=== PATIENT | male | born 1945 | race African-American/Black ===

== ENCOUNTER 2020-09-01 09:00 | Outpatient (RCR) | payer MEDICARE, MEDICAID, OTHER, SELFPAY ==
[2020-05-04 08:52] VITALS: BP 163/86; PULSE 60; RESP 18; TEMP 36.5; O2SAT 98; BMI 25.1
[2020-05-04] MEDS: Cyanocobalamin (Vitamin B-12) 1,000 MCG/ML VIAL 1000 MCG IM (09:05)
[2020-06-08 08:54] VITALS: BP 128/82; PULSE 71; RESP 18; TEMP 37.1; O2SAT 100; BMI 25.2
[2020-06-08] MEDS: Cyanocobalamin (Vitamin B-12) 1,000 MCG/ML VIAL 1000 MCG IM (09:14)
--- NOTE | 2020-06-08 09:28 | MHC.HEMONC ---
VIT B12 right deltoid, F/U in 1 month.
[2020-07-06 09:22] LABS: MANUAL DIFF FLAG NO
[2020-07-06 09:24] VITALS: BP 133/68; PULSE 70; RESP 16; TEMP 36.3; O2SAT 100; BMI 24.3
[2020-07-06 09:25] LABS: Basophils Absolute Auto 0.1 X10*3/uL (0.0-0.2); Eosinophils Absolute Auto 0.2 X10*3/uL (0.0-0.4); Eosinophils Percent Auto 3.3 % (0-4); Hematocrit 36.6 % (42-52); Hemoglobin 11.9 g/dl (14.0-18.0); Lymphocytes Percent Auto 38.7 % (20-40); Mean Corpuscular HGB Conc 32.5 g/dl (31.0-36.0); Mean Corpuscular Hemoglobin 29.4 pg (27.0-33.0); Mean Corpuscular Volume 90.4 fL (80-98); Monocytes Absolute Auto 0.4 X10*3/uL (0.1-1.2); Monocytes Percent Auto 8.1 % (2-11); Neutrophils Absolute Auto 2.5 X10*3/uL (2.0-8.3); Neutrophils Percent Auto 48.9 % (45-73); Platelet Count 267 X10*3/uL (160-400); Red Blood Count 4.05 X10*6/uL (4.60-5.80); Red Cell Distribution Width 14.7 % (11.0-16.0); White Blood Count 5.2 X10*3/uL (4.8-10.8)
[2020-07-06] MEDS: Cyanocobalamin (Vitamin B-12) 1,000 MCG/ML VIAL 1000 MCG IM (09:29)
--- NOTE | 2020-07-06 09:38 | P.PNHO_ITS ---
Medical Summary - Medical Summary Date of Service: 07/06/20 Medical Summary: DIAGNOSIS: Prostate Carcinoma diagnosed back in the year 1999. PSA was 7 or 8 at that time. [place] score of 3 + 2 = 5. He was treated by Dr. Rajinder Kenny. THERAPY: Underwent radiation therapy at [facility] under the care of Dr. Juanita Dale. He was on LHRH analogue twice a year. Subsequently, Lupron was stopped. After a few years, PSA started going up and he was restarted on Lupron. Last dose was February 26, 2015. September 2015, his PSA was up to 14.4, and he was started on Casodex and on Lupron back on December 25. He took a break from Lupron again for a few months. His PSA started rising and so he got a dose, about 6 months ago. Started on Enzalutamide in July,. PSA is down to 0.97. As of November 17. Interval History Interval history: A 75-year-old gentleman, here for a follow-up visit. He tells me that he has been feeling quite well. He denies any major complaints. He says, could be worst. No fever nor flank pain. He has good energy level. He denies noticing any chest pain or trouble breathing. No recent fever chills no night sweats. He denies headache nor dizziness. Denies any abdominal pain nausea vomiting heartburn indigestion. Bowels are moving without any gross blood in it. He has a good appetite. His weight is down. He is in good spirits, rest of the review of systems is unremarkable. Review of Systems - Constitutional Reports system reviewed and no additional complaints, except as documented - Eyes Reports system reviewed and no additional complaints, except as documented - ENT Reports system reviewed and no additional complaints, except as documented - Cardiovascular Reports system reviewed and no additional complaints, except as documented, Denies chest pain at rest - Respiratory Reports no additional respiratory complaints, Reports chest congestion, Denies dyspnea on exertion - Gastrointestinal Reports system reviewed and no additional complaints, except as documented, Denies abdominal pain, Denies change in bowel habits - Genitourinary Genitourinary: Reports no additional male genitourinary complaints - Musculoskeletal Reports system reviewed and no additional complaints, except as documented - Integumentary/Breasts Skin/Breast: Reports no additional skin complaints - Neurologic Reports system reviewed and no additional complaints, except as documented - Psychiatric Reports system reviewed and no additional complaints, except as documented, Denies anxiety - Endocrine Reports no additional endocrine complaints, Denies excessive sweating - Hematologic/Lymphatic Reports system reviewed and no additional complaints, except as documented, Denies easy bruising - Allergic/Immunologic Reports system reviewed and no additional complaints, except as documented, Denies GI upset with certain foods PMFSH Medical History: Medical History (Last Updated 07/06/20 @ 09:25 by Blanka Arzate RN) B12 deficiency FH: radiation therapy Hyperlipemia Hypertension Prostate cancer Functional capacity: independent ambulation Patient : No Home Medications and Allergies Current Medications: Current Medications Generic Name Dose Route Start Last Admin Trade Name Freq PRN Reason Stop Dose Admin Cyanocobalamin 1,000 mcg 06/08/20 09:00 06/08/20 09:14 Cyanocobalamin (Vitamin B-12) 1,000 Mcg/Ml Vial IM 1,000 mcg Q30D BREE Administration Home Medications Medication Instructions Recorded Confirmed Type amlodipine 5 mg PO DAILY 05/04/20 05/04/20 History atorvastatin 80 mg PO BEDTIME 05/04/20 05/04/20 History enzalutamide [Xtandi] 40 mg PO DAILY 05/04/20 05/04/20 History Allergies Allergy/AdvReac Type Severity Reaction Status Date / Time No Known Allergies Allergy Verified 07/06/20 09:25 [No Known Allergies*] Exam Vital signs: Vital Signs Temp 97.4 F 07/06/20 09:24 Pulse 70 07/06/20 09:24 Resp 16 07/06/20 09:24 BP 133/68 07/06/20 09:24 Pulse Ox 100 07/06/20 09:24 Intake & Output 07/05/20 07/06/20 07/06/20 18:59 06:59 18:59 Other: Weight 81.3 kg Weight 81.3 kg Body Mass Index 24.3 - Constitutional Present: no acute distress - Routine HEENT Exam Head: Present: normal inspection Eye: Present: normal appearance ENT: Present: mucous membranes moist - Routine Neck Exam Present: full ROM - Routine Respiratory Exam Present: CTAB - Routine Cardiovascular Exam Cardiovascular: Present: RRR, S1, S2 - Routine Abdominal Exam Present: soft, nontender - Routine Extremities Exam Present: nontender - Routine Back/Spine/Pelvis Exam Back/Spine: Present: full ROM - Routine Skin Exam Present: intact - Routine Neurological Exam Present: alert, oriented X3 - Routine Psychiatric Exam Present: normal affect Data - Labs CBC & Chem 7: 07/06/20 09:10 07/06/20 09:10 Labs: 05/04/20 00:01 Cyanocobalamin (Vitamin B-12) [Vitamin B-12] 1,000 mcg IM ONCE 07/06/20 07:57 Cyanocobalamin (Vitamin B-12) [Vitamin B-12] 1,000 mcg IM ONCE ONE 07/06/20 09:10 Complete Blood Count Auto Diff Routine Laboratory Last Values WBC 5.2 X10*3/uL (4.8-10.8) 07/06/20 09:10 RBC 4.05 X10*6/uL (4.60-5.80) L 07/06/20 09:10 Hgb 11.9 g/dl (14.0-18.0) L 07/06/20 09:10 Hct 36.6 % (42-52) L 07/06/20 09:10 MCV 90.4 fL (80-98) 07/06/20 09:10 MCH 29.4 pg (27.0-33.0) 07/06/20 09:10 MCHC 32.5 g/dl (31.0-36.0) 07/06/20 09:10 RDW 14.7 % (11.0-16.0) 07/06/20 09:10 Plt Count 267 X10*3/uL (160-400) 07/06/20 09:10 MPV 9.0 fL (9.4-12.4) L 07/06/20 09:10 Immature Gran % (Auto) 0.0 % (0.0-0.4) 07/06/20 09:10 Neut % (Auto) 48.9 % (45-73) 07/06/20 09:10 Lymph % (Auto) 38.7 % (20-40) 07/06/20 09:10 [place] % (Auto) 8.1 % (2-11) 07/06/20 09:10 Eos % (Auto) 3.3 % (0-4) 07/06/20 09:10 Baso % (Auto) 1.0 % (0-2) 07/06/20 09:10 Lymph # (Auto) 2.0 X10*3/uL (1.2-4.9) 07/06/20 09:10 [place] # (Auto) 0.4 X10*3/uL (0.1-1.2) 07/06/20 09:10 Eos # (Auto) 0.2 X10*3/uL (0.0-0.4) 07/06/20 09:10 Baso # (Auto) 0.1 X10*3/uL (0.0-0.2) 07/06/20 09:10 Abs Immat Gran (auto) 0.00 X10*3/uL (0.00-0.03) 07/06/20 09:10 Absolute Neuts (auto) 2.5 X10*3/uL (2.0-8.3) 07/06/20 09:10 Absolute Nucleated RBC 0.000 X10*3/uL (0.0-0.012) 07/06/20 09:10 Nucleated RBC % (auto) 0.0 /100WBC (0.0-0.2) 07/06/20 09:10 Progress Note: A/P (1) Vitamin B12 deficiency Status: Acute Assessment and plan: 2).ANEMIA, RELATED TO B12 DRFICIENCY: He is on B12 injection on a monthly basis. PLAN: He will return in a month for B12 and and 3 months for follow-up. (2) Prostate CA Status: Acute Assessment and plan: 74 year-old gentleman with: 1). Prostate Carcinoma, diagnosed back in 1999. He initially underwent radiation therapy. He was under observation, however his PSA started creeping up and then up to 14. He was started on Lupron and Casodex. With that treatment his PSA had come down to 2.9 range. However, he was concerned about the potential side effects from the therapy including, hot flashes and ED. his Lupron was held. However his PSA started creeping up. The Lupron was resumed about a year ago, however the PSA keeps rising. The imaging did not reveal bony metastases, however there was appear to be local disease in the prostate. He was started on Enzelutamide, in July,. He is tolerating it well. PSA today is 3.07. PSA from October to was 0.97. PSA from August 26 was 0.4, from April 22 was 0.28, mid April it was 0.29, the one from September was 0.31. One from February 09 was 0.40. He had a bone scan on August 18 which revealed: A few mild nonspecific abnormalities are noted as described above and these are all likely arthritic or traumatic in etiology. None of these abnormalities is strongly suspicious for metastatic disease. I requested for the urine culture results from [facility]. Positive for Klebsiella pneumoniae. Broadly sensitive. I advised him to take Macrobid 100 mg b.i.d. for 7 days, based upon the sensitivities. His PSA was rising. He had a bone scan on March 13. It revealed: New focal areas of abnormal activity left anterior 4th rib and right anterolateral 6th rib, ? likely metastatic process. Mild degenerative changes seen in both shoulder joints, AC joints, knee joints as well as the anterior tibial margins. These findings are unchanged to previous study 08/18/2019. He had decreased the dose to 2 pills a day, on the Enzelutamide. I advised him go back up to the full-dose. He has a follow-up appointment with Dr. Knight on April 02. He was given a shot of Lupron. PSA from today's 18. PLAN: He will return for Denosumab. He received the Lupron few months ago. He will continue on it from Dr. Knight. He is on Xtandi. He needs to increase the dose back up to 160 mg daily. He tells me lately he has been taking only 1 pill a day. Will continue to followup on his PSA, levels. CC: Dr. Cira Currie, Dr. Ever Knight. Code Status FULL CODE - Time Spent With Patient Total time spent is greater than 50% in coordination of care (as documented) at patient's floor/unit and/or counseling patient: 25 - 35 minutes
[2020-07-06 09:50] LABS: Alanine Aminotransferase 14 U/L (0-40); Albumin Level 4.4 g/dL (3.5-5.0); Alkaline Phosphatase 112 U/L (39-117); Anion Gap 13 (12-20); Aspartate Amino Transferase 22 U/L (5-37); Bilirubin Total 0.3 mg/dL (0.0-1.0); Blood Urea Nitrogen 18 mg/dL (9-16); Calcium 9.3 mg/dL (8.4-10.2); Carbon Dioxide 27 mmol/L (22-29); Chloride 104 mmol/L (96-108); Creatinine Clr Calc Pharmacy 58.8; Estimated Glomerular Filt Rate 60; Glucose Random 99 mg/dL (60-115); Potassium 4.3 mmol/l (3.3-5.1); Sodium 140 mmol/L (135-145); Total Protein 7.5 g/dL (6.5-8.0)
--- NOTE | 2020-07-06 09:52 | MHC.HEMONC ---
Patient here for follow-up and injection. Summary updated with nurse. Injection given as documented. Provider seen patient. Follow-ups booked.
[2020-07-06 10:30] LABS: PSA,Total (Free>4and<10) 18.02 ng/mL (0.00-4.00)
--- NOTE | 2020-07-06 10:47 | MHC.HEMONC ---
Denosumab ordered by doctor. Injection booked. Patient informed over the phone and it will be mailed.
[2020-07-13 09:45] VITALS: BP 155/88; PULSE 71; RESP 18; TEMP 36.2; O2SAT 99; BMI 24.7
--- NOTE | 2020-07-13 10:33 | MHC.HEMONC ---
Patient came for an injection. Injection give as documente.d =
--- NOTE | 2020-07-13 10:33 | MHC.HEMONC ---
Patient came for injection today. Vitals, height, and weight documented. Injection given as documented. Follow-up given before departure.
[2020-08-04 09:14] VITALS: BP 119/80; PULSE 80; RESP 18; TEMP 36.4; O2SAT 98; BMI 25.1
[2020-08-04 09:25] LABS: MANUAL DIFF FLAG NO
[2020-08-04 09:27] LABS: Basophils Percent Auto 0.7 % (0-2); Eosinophils Absolute Auto 0.2 X10*3/uL (0.0-0.4); Eosinophils Percent Auto 3.3 % (0-4); Hematocrit 36.4 % (42-52); Hemoglobin 11.7 g/dl (14.0-18.0); Imm Gran Abs Auto 0.01 X10*3/uL (0.00-0.03); Imm Gran Pct Auto 0.2 % (0.0-0.4); Lymphocytes Absolute Auto 2.5 X10*3/uL (1.2-4.9); Lymphocytes Percent Auto 43.3 % (20-40); Mean Corpuscular HGB Conc 32.1 g/dl (31.0-36.0); Mean Corpuscular Volume 90.1 fL (80-98); Mean Platelet Volume 8.4 fL (9.4-12.4); Monocytes Absolute Auto 0.6 X10*3/uL (0.1-1.2); Monocytes Percent Auto 9.7 % (2-11); Neutrophils Absolute Auto 2.4 X10*3/uL (2.0-8.3); Neutrophils Percent Auto 42.8 % (45-73); Platelet Count 277 X10*3/uL (160-400); Red Blood Count 4.04 X10*6/uL (4.60-5.80); Red Cell Distribution Width 14.9 % (11.0-16.0); White Blood Count 5.7 X10*3/uL (4.8-10.8)
[2020-08-04] MEDS: Cyanocobalamin (Vitamin B-12) 1,000 MCG/ML VIAL 1000 MCG IM (09:29)
[2020-08-04 10:12] LABS: Alanine Aminotransferase 17 U/L (0-40); Albumin Level 4.4 g/dL (3.5-5.0); Alkaline Phosphatase 114 U/L (39-117); Anion Gap 9 (12-20); Aspartate Amino Transferase 23 U/L (5-37); Bilirubin Total 0.4 mg/dL (0.0-1.0); Blood Urea Nitrogen 11 mg/dL (9-16); Carbon Dioxide 29 mmol/L (22-29); Chloride 103 mmol/L (96-108); Creatinine Clr Calc Pharmacy 73.7; Estimated Glomerular Filt Rate > 60; Glucose Random 96 mg/dL (60-115); Potassium 4.2 mmol/l (3.3-5.1); Sodium 137 mmol/L (135-145); Total Protein 7.5 g/dL (6.5-8.0)
[2020-08-04 10:18] LABS: Prostate Specific Antigen Scr 28.88 ng/mL (<0.05-4.0)
[2020-09-01 09:28] VITALS: BP 130/77; PULSE 83; RESP 18; TEMP 36.3; O2SAT 99; BMI 25.0
[2020-09-01] MEDS: Cyanocobalamin (Vitamin B-12) 1,000 MCG/ML VIAL 1000 MCG IM (09:33)
== END 2020-11-06 10:11 | disposition home or self-care (01) ==
LOC: HO.ONC 09:00
PROVIDERS: PCP Internal Medicine; Visit Provider Internal Medicine Medical Oncology
DX: C61 Malignant neoplasm of prostate (principal); C79.51 Secondary malignant neoplasm of bone; E53.8 Deficiency of other specified B group vitamins; Z92.3 Personal history of irradiation
CPT/HCPCS: 36415; 80053; 84153; 85025; 96372; 99214; J0897